=== PATIENT | male | born 1980 | race Hispanic/Latino ===

== ENCOUNTER 2018-05-10 01:53 | Emergency (ER) | payer SELFPAY ==
[2018-05-10] MEDS ORDERED: ZOFRAN ONE (02:02)
[2018-05-10] MEDS ORDERED: TORADOL ONE ×2 (02:02→07:47)
[2018-05-10] MEDS ORDERED: TORADOL IV ONE ×2 (02:18→07:53)
[2018-05-10] MEDS ORDERED: ZOFRAN IV ONE (02:18)
[2018-05-10 02:39] LABS: Basophils # (Auto) 0.1 K/mm3 (0.0-0.1); Basophils % (Auto) 1.4 % (0.0-1.8); Eosinophils # (Auto) 0.2 K/mm3 (0.0-0.4); Eosinophils % (Auto) 2.7 % (0.0-4.3); Hematocrit 46.2 % (35.5-45.6); Hemoglobin 16.1 gm/dl (11.8-15.2); Lymphocytes # (Auto) 3.3 K/mm3 (1.2-5.4); Lymphocytes % (Auto) 38.5 % (13.4-35.0); Mean Corpuscular HGB Conc 35 % (32-34); Mean Corpuscular Hemoglobin 31 pg (28-32); Mean Corpuscular Volume 89 fl (84-94); Monocytes # (Auto) 0.6 K/mm3 (0.0-0.8); Monocytes % (Auto) 6.7 % (0.0-7.3); Platelet Count 278 K/mm3 (140-440); Red Blood Count 5.22 M/mm3 (3.65-5.03); Red Cell Distribution Width 13.3 % (13.2-15.2)
[2018-05-10 03:16] LABS: BUN/Creatinine Ratio 21; Blood Urea Nitrogen 17 mg/dL (9-20); Calcium 9.5 mg/dL (8.4-10.2); Hemolysis Index 3
[2018-05-10 07:47] LABS: Bacteria,Urine 1+ /HPF (Negative); Bilirubin,Urine NEG (Negative); Blood,Urine MOD (Negative); Calcium Oxalate Crystals,Urine FEW; Color,Urine Yellow (Yellow); Mucus,Urine 1+ /HPF; Protein,Urine <15 mg/dL mg/dL (Negative); Urobilinogen,Urine < 2.0 mg/dL (<2.0)
[2018-05-10] MEDS ORDERED: NACL 0.9% 1000 ML 1,000 ML ONE (07:47)
[2018-05-10] MEDS ORDERED: MORPHINE IV ONE (07:52)
--- NOTE | 2018-05-10 07:59 | Emergency Department Report ---
ED Abdominal Pain HPI - General Chief Complaint: Abdominal Pain Stated Complaint: KIDNEY STONES Time Seen by Provider: 05/10/18 07:51 Source: patient Mode of arrival: Ambulatory Limitations: No Limitations - History of Present Illness Initial Comments: Patient with 8 hour history of right back and flank pain typical of kidney stones, which is constant, aching, severe, being 10 out of 10, which awakened him from sleep at midnight. He did have a mild ache in his testicles over the past couple of days, but this was mild and intermittent. He has not had any fever chills or diaphoresis. Last episode of kidney stones was over 2 years ago , he does not have her routine urologist, having only recently reobtained insurance. -: Sudden Time: 12:00 Location: R flank Radiation: R flank Migration to: RLQ Severity scale (0 -10): 5 Quality: stabbing, aching Consistency: constant Improves With: nothing Worsens With: nothing Associated Symptoms: nausea - Related Data Previous Rx's Medication Instructions Recorded Last Taken Type HYDROcodone/ACETAMINOPHEN [Derry 1 each PO Q6HR #20 tablet 05/10/18 Unknown Rx 10-325 Tablet] Ondansetron [Zofran ODT TAB] 8 mg PO Q8HR PRN #10 tab.rapdis 05/10/18 Unknown Rx Tamsulosin [Flomax] 0.4 mg PO QDAY #10 cap 05/10/18 Unknown Rx Allergies Allergy/AdvReac Type Severity Reaction Status Date / Time amoxicillin Allergy Hives Verified 05/10/18 02:17 Penicillins Allergy Hives Verified 05/10/18 02:17 ED Review of Systems ROS: Stated complaint: KIDNEY STONES Other details as noted in HPI ED Past Medical Hx - Past Medical History Hx Kidney Stones: Yes - Surgical History Past Surgical History?: No - Social History Smoking Status: Current Every Day Smoker Substance Use Type: None - Medications Home Medications: Home Medications Medication Instructions Recorded Confirmed Last Taken Type HYDROcodone/ACETAMINOPHEN [Derry 1 each PO Q6HR #20 tablet 05/10/18 Unknown Rx 10-325 Tablet] Ondansetron [Zofran ODT TAB] 8 mg PO Q8HR PRN #10 tab.rapdis 05/10/18 Unknown Rx Tamsulosin [Flomax] 0.4 mg PO QDAY #10 cap 05/10/18 Unknown Rx ED Physical Exam - General Limitations: No Limitations General appearance: in distress - Head Head exam: Present: atraumatic, normocephalic - Eye Eye exam: Present: PERRL, EOMI - ENT ENT exam: Present: normal exam - Neck Neck exam: Present: normal inspection - Respiratory Respiratory exam: Present: respiratory distress. Absent: wheezes, rales, rhonchi - Cardiovascular Cardiovascular Exam: Present: regular rate, normal heart sounds - GI/Abdominal GI/Abdominal exam: Present: soft, tenderness (right flank, extending towards right back), normal bowel sounds. Absent: rebound - Rectal Rectal exam: Present: deferred - exam: Present: normal inspection - Extremities Exam Extremities exam: Present: normal inspection, full ROM. Absent: tenderness - Back Exam Back exam: Present: CVA tenderness (R) - Psychiatric Psychiatric exam: Present: normal affect, normal mood - Skin Skin exam: Present: warm, diaphoretic ED Course Vital Signs 05/10/18 05/10/18 05/10/18 02:14 02:49 06:40 Temperature 36.8 C 36.6 C Pulse Rate 76 69 Respiratory 18 20 16 Rate Blood Pressure 142/91 Blood Pressure 121/69 [Left] O2 Sat by Pulse 100 99 Oximetry 05/10/18 05/10/18 07:57 08:33 Temperature 36.2 C L Pulse Rate 67 Respiratory 20 16 Rate Blood Pressure Blood Pressure 116/73 [Left] O2 Sat by Pulse 97 Oximetry ED Medical Decision Making - Lab Data Result diagrams: 05/10/18 02:26 05/10/18 02:26 - Radiology Data Radiology results: report reviewed (6 mm right ureterovesical stone, with moderate hydronephrosis) - Medical Decision Making Patient declined to wait for adequate relief of discomfort, as he had family to picker, will be discharged with analgesia, antiemetics, and antispasmodics. To return if he gets much worse. - Differential Diagnosis kidney stone, appendicitis, urinary tract infection Critical Care Time: No Critical care attestation.: If time is entered above; I have spent that time in minutes in the direct care of this critically ill patient, excluding procedure time. ED Disposition Clinical Impression: Ureterolithiasis, Renal colic on right side Disposition: DC-01 TO HOME OR SELFCARE Is pt being admited?: No Does the pt Need Aspirin: No Condition: Stable Instructions: Kidney Stones (ED) Additional Instructions: Rest while feeling pain, have recheck with doctor in 3-4 days, and obtain referral to urologist for further evaluation for recurrent kidney stones. Prescriptions: HYDROcodone/ACETAMINOPHEN [Derry 10-325 Tablet] 1 each PO Q6HR #20 tablet Ondansetron [Zofran ODT TAB] 8 mg PO Q8HR PRN #10 tab.rapdis PRN Reason: Nausea Tamsulosin [Flomax] 0.4 mg PO QDAY #10 cap Referrals: PRIMARY CARE, [Primary Care Provider] - 3-5 Days Forms: Work/School Release Form(ED) Time of Disposition: 09:05
[2018-05-10 08:35] VITALS: BP 116/73
--- NOTE | 2018-05-10 08:40 | Cat Scan Report ---
FINAL REPORT EXAM: CT ABDOMEN PELVIS WO CON HISTORY: eval poss kidney stone R TECHNIQUE: CT images obtained through the Abdomen and Pelvis without contrast. Transaxial,coronal and sagittal reformats are provided. PRIORS: None. FINDINGS: Imaged intrathoracic contents are unremarkable. Kidneys are normal in size, axis and position. Moderate right hydroureteronephrosis due to a distal ureteral 6 millimeter stone on axial series 2, image 126. There are additional nonobstructive stones in both collecting systems measuring up to 3 millimeters on the right and 2 millimeters on the left. No left-sided hydroureteronephrosis. No stones in the urinary bladder. The liver, gallbladder, pancreas, spleen, and adrenal glands demonstrate a normal noncontrast appearance. Hollow enteric organs are normal in course and caliber. No findings of appendicitis. No intra-abdominal free air/fluid or lymphadenopathy. Aorta is normal in course and caliber. Superficial soft tissues are unremarkable. No acute or aggressive appearing skeletal findings. IMPRESSION: Moderate right hydroureteronephrosis due to a distal ureteral 6 millimeter stone. There are additional nonobstructive stones in both collecting systems measuring up to 3 millimeters on the right and 2 millimeters on the left.
== END 2018-05-10 09:20 | disposition home or self-care (01) ==
LOC: ED 01:53
DX: N20.2 Calculus of kidney with calculus of ureter (principal); F17.200 Nicotine dependence, unspecified, uncomplicated; Z88.0 Allergy status to penicillin; Z88.1 Allergy status to other antibiotic agents
CPT/HCPCS: 36415; 74176; 80048; 81001; 85025; 96374; 96375; 96376; 99284; J1885; J2405; J7030